=== PATIENT | male | born 1945 | race Caucasian/White ===

== ENCOUNTER → 2017-09-09 | Outpatient (CLI) | payer OTHER ==
[~2017-09-09] MED LIST: ASPIR 8181 M1 PO; ATORVASTATIN CA10 MG PO; CIPROFLOXACIN500 M1 PO; FUROSEMIDE40 MG PO; GABAPENTIN300 MG PO; HUMULIN R500 UNITS/ SC; ICAPS LUTEIN1 TABLET PO; LEVO-T50 MCG PO; LEVOTHYROXINE75 MCG PO; LISINOPRIL20 MG PO; METOPROLOL SUCC50 MG PO; METRONIDAZOLE500 MG PO; PROSCAR5 MG PO; TAMSULOSIN HCL0.4 MG PO; VITAMIN D5000 UNI1 PO
== END | disposition home or self-care (01) ==
LOC: NUC 08:10
DX: R11.0 Nausea (principal)
CPT/HCPCS: 78264; A9541

== ENCOUNTER → 2017-09-29 | Outpatient (CLI) | payer OTHER ==
[~2017-09-29] VITALS: Ht 174 cm; Wt 120.9 kg
[~2017-09-29] MED LIST changes: +OCUVITE LUTEIN1 EAC2 PO; +PRILOSEC20 MG PO
[2017-09-29 10:47] LABS: POINT-OF-CARE METER ID UU14107333
[2017-09-29 11:55] LABS: POINT-OF-CARE METER ID UU13113819
== END | disposition home or self-care (01) ==
LOC: AMB 09:43
PROVIDERS: Internal Medicine
DX: Z12.11 Encounter for screening for malignant neoplasm of colon (principal); K57.30 Diverticulosis of large intestine without perforation or abscess without bleeding; Z53.09 Procedure and treatment not carried out because of other contraindication; K29.70 Gastritis, unspecified, without bleeding; E11.40 Type 2 diabetes mellitus with diabetic neuropathy, unspecified; E11.22 Type 2 diabetes mellitus with diabetic chronic kidney disease; I12.9 Hypertensive chronic kidney disease with stage 1 through stage 4 chronic kidney disease, or unspecified chronic kidney disease; N18.3 Chronic kidney disease, stage 3 (moderate); I25.10 Atherosclerotic heart disease of native coronary artery without angina pectoris; N40.0 Benign prostatic hyperplasia without lower urinary tract symptoms; E83.119 Hemochromatosis, unspecified; E78.5 Hyperlipidemia, unspecified; E03.9 Hypothyroidism, unspecified; Z96.41 Presence of insulin pump (external) (internal); G47.30 Sleep apnea, unspecified; E66.9 Obesity, unspecified; Z68.41 Body mass index [BMI] 40.0-44.9, adult; E55.9 Vitamin D deficiency, unspecified; Z82.49 Family history of ischemic heart disease and other diseases of the circulatory system; Z83.3 Family history of diabetes mellitus; Z87.891 Personal history of nicotine dependence; Z79.82 Long term (current) use of aspirin; H91.90 Unspecified hearing loss, unspecified ear; Z88.1 Allergy status to other antibiotic agents
CPT/HCPCS: 82948; 88305; 88342 TC

== ENCOUNTER → 2018-03-26 | Outpatient (CLI) | payer OTHER | END | disposition home or self-care (01) | LOC: RAD 09:47 | DX: R14.0 Abdominal distension (gaseous) (principal); K74.60 Unspecified cirrhosis of liver; E83.119 Hemochromatosis, unspecified | CPT/HCPCS: 76705 ==